=== PATIENT | male | born 1960 | race Caucasian/White ===

== ENCOUNTER 2022-07-18 22:42 | Emergency (ER) | payer OTHER | END 2022-07-19 03:05 | disposition home or self-care (01) | LOC: ERS 22:42 | DX: M79.605 Pain in left leg (principal); I73.9 Peripheral vascular disease, unspecified; E78.5 Hyperlipidemia, unspecified; I10 Essential (primary) hypertension; F17.210 Nicotine dependence, cigarettes, uncomplicated; Z79.82 Long term (current) use of aspirin; Z79.899 Other long term (current) drug therapy | CPT/HCPCS: 93923 ==